=== PATIENT | female | born 1985 | race Caucasian/White ===

== ENCOUNTER 2021-05-14 10:06 | Inpatient (IN) | payer BC ==
[~2021-05-14] VITALS: Ht 175.3 cm; Wt 86.4 kg
[~2021-05-14 10:06] MED LIST: LYSI500C4 PO; TRAM50TA2 PO
[2021-05-14] MEDS ORDERED: dexamethasone sod phosphate 10mg/ml inj IV STA (10:44)
[2021-05-14 11:17] LABS: BASOPHILS % (AUTO) 0.2 % (0-1); EOSINOPHILS % (AUTO) 0 % (0-6); HEMATOCRIT 40.3 % (35.0-45.0); HEMOGLOBIN 13.7 g/dl (12.0-16.0); LYMPHOCYTES # (AUTO) 0.6 X10'3 (1.1-4.8); LYMPHOCYTES % (AUTO) 22.6 % (21-51); MEAN CORPUSCULAR HEMOGLOBIN 29.9 PG (27.0-31.0); MEAN CORPUSCULAR HGB CONC 34.1 g/dL (33.0-36.5); MEAN CORPUSCULAR VOLUME 87.7 FL (78-98); MEAN PLATELET VOLUME 7.8 FL (7.4-10.4); MONOCYTES # (AUTO) 0.2 X10'3 (0-0.9); MONOCYTES % (AUTO) 8.5 % (2-12); NEUTROPHILS # (AUTO) 1.9 X10'3 (1.8-7.7); NEUTROPHILS % (AUTO) 68.7 % (42-75); PLATELET COUNT 181 X10'3 (140-440); RED BLOOD COUNT 4.59 X10'6 (4.20-5.60); RED CELL DISTRIBUTION WIDTH 14.6 % (11.5-14.5); WHITE BLOOD COUNT 2.8 X10'3 (4.5-11.0)
[2021-05-14 11:35] LABS: ALANINE AMINOTRANSFERASE 29 U/L (12-78); ALBUMIN 3.5 G/DL (3.4-5.0); ALBUMIN/GLOBULIN RATIO 0.6 (1.1-1.5); ALKALINE PHOSPHATASE 63 IU/L (46-116); ANION GAP 14 (8-16); ASPARTATE AMINO TRANSFERASE 26 U/L (10-37); BILIRUBIN,TOTAL 0.5 MG/DL (0.1-1.0); BLOOD UREA NITROGEN 12 MG/DL (7-18); CALCIUM 9.4 MG/DL (8.5-10.1); CHLORIDE 100 MMOL/L (99-107); CREATININE 0.75 MG/DL (0.40-0.90); GLUCOSE 138 MG/DL (70-104); POTASSIUM 3.4 MMOL/L (3.5-5.1); SODIUM 139 MMOL/L (135-145); TOTAL CARBON DIOXIDE 25.4 MMOL/L (24-32); TOTAL PROTEIN 8.9 G/DL (6.4-8.2); eGFR 87 ML/MIN
[2021-05-14 11:48] LABS: C-REACTIVE PROTEIN 4.33 MG/DL (0.0-0.5); LACTATE DEHYDROGENASE 279 U/L (81-234)
[2021-05-14 11:49] LABS: FERRITIN 551 NG/ML (8-252)
[2021-05-14 12:00] LABS: D-DIMER 0.59 MG/L FEU (0-0.50)
[2021-05-14] MEDS ORDERED: iohexol 350MG/ML 100ml bottle IV ONE (12:03)
[2021-05-14 12:26] LABS: PLATELET ESTIMATE NORMAL; TOTAL CELLS COUNTED 100
[2021-05-14] MEDS ORDERED: REMDESIVIR INJ 200 MG in normal saline 100ml IV soln 100 ML IV ONE (13:20)
[2021-05-14] MEDS ORDERED: ondansetron/PF 4mg/2ml inj IV PRN (13:45)
[2021-05-14] MEDS ORDERED: acetaminophen 325mg tablet PO PRN (13:45)
[2021-05-14] MEDS ORDERED: mag hydrox/Alum hydrox/simeth 30ml oral suspension PO PRN (13:45)
[2021-05-14] MEDS ORDERED: magnesium hydroxide 30ml (MOM) UD suspension PO PRN (13:45)
[2021-05-14] MEDS ORDERED: normal saline 1000ml 1,000 ML IV SCH (13:45)
[2021-05-14] MEDS ORDERED: ONDA-104 PO (14:40)
[2021-05-14] MEDS ORDERED: HYDR-3972 PO (14:40)
[2021-05-14] MEDS ORDERED: OMEP40CA21 PO (14:40)
[2021-05-14] MEDS ORDERED: PRE5T PO (14:40)
[2021-05-14] MEDS ORDERED: GABA300C PO (14:40)
[2021-05-14] MEDS ORDERED: AZAT50TA18 PO (14:40)
[2021-05-14] MEDS ORDERED: LEVA15HF4 INH (14:40)
[2021-05-14] MEDS: dexamethasone 4mg/ml inj IM SCH (16:00)
--- NOTE | 2021-05-14 18:30 | NUR ---
ASSUMED CARE OF PATIENT FROM RONAN MARQUIS. NO DISTRESS. [id number]. SKIN WARM AND DRY.
--- NOTE | 2021-05-14 20:20 | NUR ---
NO C/O. REQUESTING HOME MEDS. SPOKE WITH DR ALMONTE V/O HYDROCODONE AND GABAPENTIN. HOLD IMUNE. PHARMACY CALLED AND MADE ADJUSTMENT. RESTING IN ROOM. NO DISTRESS.
[2021-05-14] MEDS ORDERED: HYDROcodone/acetaminophen 10/325mg tab PO ONE (20:25)
[2021-05-14] MEDS ORDERED: gabapentin 400mg capsule PO SCH ×2 (20:25→20:34)
[2021-05-14] MEDS ORDERED: gabapentin 300mg capsule PO SCH ×2 (20:30→20:35)
[2021-05-14] MEDS: docusate sod 100mg capsule PO SCH (21:38)
[2021-05-14] MEDS: gabapentin 300mg capsule PO SCH (21:40)
[2021-05-14] MEDS: enoxaparin 30mg/0.3ml syringe SQ SCH (21:45)
--- NOTE | 2021-05-14 21:54 | NUR ---
PATIENT RESTING IN ROOM, NO C/O. AWARE OF ADMISSION. SHOULD RECEIVE ASSIGN ROOM IN 1 HR. STABLE.
--- NOTE | 2021-05-14 22:26 | NUR ---
ATTEMPTED REPORT UNSUCCESSFUL
[2021-05-15] VITALS: BP 118/79
[2021-05-15] MEDS: dexamethasone 4mg/ml inj IM SCH (02:55)
[2021-05-15] MEDS: HYDROcodone/acetaminophen 10/325mg tab PO PRN ×2 (02:55→09:18)
[2021-05-15 06:00] VITALS: BP 105/66
[2021-05-15 07:12] LABS: BASOPHILS % (AUTO) 0.2 % (0-1); EOSINOPHILS % (AUTO) 0 % (0-6); HEMATOCRIT 37.9 % (35.0-45.0); HEMOGLOBIN 12.8 g/dl (12.0-16.0); LYMPHOCYTES # (AUTO) 0.6 X10'3 (1.1-4.8); LYMPHOCYTES % (AUTO) 18.9 % (21-51); MEAN CORPUSCULAR HEMOGLOBIN 29.7 PG (27.0-31.0); MEAN CORPUSCULAR HGB CONC 33.8 g/dL (33.0-36.5); MEAN CORPUSCULAR VOLUME 87.8 FL (78-98); MEAN PLATELET VOLUME 8.1 FL (7.4-10.4); MONOCYTES # (AUTO) 0.2 X10'3 (0-0.9); MONOCYTES % (AUTO) 6.8 % (2-12); NEUTROPHILS # (AUTO) 2.5 X10'3 (1.8-7.7); NEUTROPHILS % (AUTO) 74.1 % (42-75); PLATELET COUNT 195 X10'3 (140-440); RED BLOOD COUNT 4.32 X10'6 (4.20-5.60); RED CELL DISTRIBUTION WIDTH 14.9 % (11.5-14.5); WHITE BLOOD COUNT 3.3 X10'3 (4.5-11.0)
[2021-05-15 07:16] LABS: ALBUMIN 3.3 G/DL (3.4-5.0); ANION GAP 7 (8-16); BLOOD UREA NITROGEN 21 MG/DL (7-18); BUN/CREATININE RATIO 37.5 (6.6-38.0); CALCIUM 9.5 MG/DL (8.5-10.1); CHLORIDE 102 MMOL/L (99-107); CREATININE 0.56 MG/DL (0.40-0.90); GLUCOSE 144 MG/DL (70-104); POTASSIUM 3.8 MMOL/L (3.5-5.1); SODIUM 137 MMOL/L (135-145); eGFR > 90 ML/MIN
[2021-05-15] MEDS: docusate sod 100mg capsule PO SCH (08:00)
[2021-05-15] MEDS ORDERED: REMDESIVIR INJ 100 MG in normal saline 100ml IV soln 100 ML IV SCH (08:00)
[2021-05-15] MEDS ORDERED: dexamethasone 4mg/ml inj IV SCH (08:00)
[2021-05-15] MEDS: gabapentin 300mg capsule PO SCH (08:54)
[2021-05-15] MEDS: enoxaparin 30mg/0.3ml syringe SQ SCH (08:55)
[2021-05-15] MEDS ORDERED: PRED10TA23 PO (09:45)
[2021-05-15 11:00] VITALS: BP 119/77
--- NOTE | 2021-05-15 11:50 | NUR ---
pt. given discharge instructions without further questions. IV removed, catheter tip intact. personnel monitor removed. Pt. left unit at [id number]
== END 2021-05-15 11:39 | disposition home or self-care (01) | DRG 177 ==
LOC: ER 10:08 → ED HOLD 13:49 → EDBEDREQ 22:02 → PCU 3S 22:35
PROVIDERS: ADMIT Family Medicine; ATTEND Family Medicine
PROC: XW033E5 Introduction of Remdesivir Anti-infective into Peripheral Vein, Percutaneous Approach, New Technology Group 5 (ICD-10-PCS; principal; 2021-05-14)
PROC: B32T1ZZ Computerized Tomography (CT Scan) of Left Pulmonary Artery using Low Osmolar Contrast (ICD-10-PCS; 2021-05-14)
PROC: B3201ZZ Computerized Tomography (CT Scan) of Thoracic Aorta using Low Osmolar Contrast (ICD-10-PCS; 2021-05-14)
PROC: B32S1ZZ Computerized Tomography (CT Scan) of Right Pulmonary Artery using Low Osmolar Contrast (ICD-10-PCS; 2021-05-14)
DX: U07.1 COVID-19 (principal); J12.82 Pneumonia due to coronavirus disease 2019; K50.90 Crohn's disease, unspecified, without complications; F12.90 Cannabis use, unspecified, uncomplicated; G43.909 Migraine, unspecified, not intractable, without status migrainosus; R00.0 Tachycardia, unspecified; R06.03 Acute respiratory distress; I10 Essential (primary) hypertension; Z87.442 Personal history of urinary calculi; Z90.710 Acquired absence of both cervix and uterus; Z88.2 Allergy status to sulfonamides; Z88.8 Allergy status to other drugs, medicaments and biological substances; Z91.040 Latex allergy status; Z98.891 History of uterine scar from previous surgery
CPT/HCPCS: 36415; 71275; 80048; 80053; 82728; 83615; 84145; 84484; 85007; 85025; 85379; 85384; 86140; 87081; 93005; 96374; 99285; G0378; J1100; J1650; J3490; J7030; Q9967